=== PATIENT | female | born 1995 | race Caucasian/White ===

== ENCOUNTER 2023-12-29 06:40 | Emergency (ER) | payer MEDICAID ==
[~2023-12-29] VITALS: Ht 175.3 cm; Wt 91.0 kg
[2023-12-29 06:42] VITALS: O2SAT 99
[2023-12-29 07:47] LABS: BASOPHILS % 0.7 % (0.0-2.0); EOSINOPHILS % 0.7 % (0.0-5.0); HEMATOCRIT. 41.8 % (36.0-48.0); HEMOGLOBIN. 13.9 g/dL (12.0-16.0); LYMPHOCYTES % 19.8 % (20.0-50.0); MEAN CORPUSCULAR HEMOGLOBIN 29.5 pg (28.0-32.0); MEAN CORPUSCULAR HGB CONC 33.2 g/dL (31.0-37.0); MEAN CORPUSCULAR VOLUME 88.9 fL (81.0-99.0); MEAN PLATELET VOLUME 10.3 fl (7.4-10.4); MONOCYTES % 3.9 % (2.0-8.0); NEUTROPHILS % 74.9 % (40.0-76.0); PLATELET 140 x1000/uL (130-400); WHITE BLOOD COUNT 7.4 x1000/uL (4.5-11.0)
[2023-12-29] MEDS: LEVETIRACETAM 1000MG PREMIX 100 ML IV ONE (07:48)
[2023-12-29] MEDS: SODIUM CHLORIDE 0.9% 1,000 ML IV ONE (07:48)
[2023-12-29 07:57] LABS: CHLORIDE 106 mEq/L (98-107); POTASSIUM 4.3 mEq/L (3.5-5.1); SODIUM 138 mEq/L (136-145)
[2023-12-29 08:02] LABS: CREATININE 0.7 mg/dL (0.6-1.0)
[2023-12-29 08:03] LABS: GLUCOSE 140 mg/dL (70-105); UREA NITROGEN BLOOD 10 mg/dL (9-23)
[2023-12-29 08:04] LABS: ALANINE AMINOTRANSFERASE 9 IU/L (10-49); ASPARTATE AMINOTRANSFERASE 17 IU/L (<34)
[2023-12-29 08:05] LABS: ALBUMIN 4.5 g/dL (3.2-4.8); BILIRUBIN TOTAL 0.4 mg/dL (0.1-1.0); PROTEIN TOTAL 7.2 g/dL (6.0-8.3)
[2023-12-29 08:06] LABS: HCG SCREEN NEGATIVE
[2023-12-29 08:10] LABS: CARBON DIOXIDE 23 mEq/L (21-32)
[2023-12-29 08:11] LABS: CALCIUM 9.8 mg/dL (8.7-10.4)
[2023-12-29 08:14] LABS: ETHANOL BLOOD < 10 mg/dL (<10)
[2023-12-29 08:33] LABS: THYROID STIMULATING HORMONE 3.98 uIU/mL (0.55-4.78)
[2023-12-29] MEDS: ONDANSETRON HCL 4MG/2ML INJ IV ONE (09:29)
[2023-12-29] MEDS: ACETAMINOPHEN 1000MG/100ML 100 ML IV ONE (09:42)
[2023-12-29] MEDS ORDERED: KEPP500 MT (11:21)
[2023-12-29 11:45] VITALS: BP 128/78; PULSE 76; RESP 16; TEMP 98
[2023-12-29 13:41] LABS: TROPONIN I HIGH SENSITIVITY < 4 ng/L (3.0-34)
== END 2023-12-29 11:46 | disposition home or self-care (01) ==
LOC: ER 06:40
DX: R56.9 Unspecified convulsions (principal)
CPT/HCPCS: 80053; 80320; 84703; 84443; 85025; 84484; 36415; 70450; 93005; 96367; 96365; 96375; 99285; J1953; J2405; J7030; Z7610 ×2; G0480; J0131